=== PATIENT | male | born 1980 | race Hispanic/Latino ===

== ENCOUNTER 2022-01-14 20:27 | Emergency (ER) | payer OTHER ==
[~2022-01-14] VITALS: Ht 177.8 cm; Wt 123.8 kg
[2022-01-14 22:01] LABS: HEMATOCRIT 31.2 % (42-54); MEAN CORPUSCULAR HEMOGLOBIN 34.5 pg (27.0-33.0); MEAN CORPUSCULAR HGB CONC 34.6 g/dL (32.0-36.0); MEAN CORPUSCULAR VOLUME 99.7 fL (79-99); PLATELET COUNT (AUTO) 23 K/uL (130-400); RED BLOOD CELL COUNT(AUTO) 3.13 MIL/uL (4.50-6.20); RED CELL DISTRIBUTION WIDTH 16.1 % (11.0-15.5)
[2022-01-14 22:18] LABS: CREATININE 0.9 mg/dL (0.5-1.5); POTASSIUM 4.4 mmol/L (3.5-5.1)
[2022-01-14 22:22] LABS: ALBUMIN 3.1 g/dL (3.5-5.0)
[2022-01-14 22:34] LABS: APPEARANCE,URINE Cloudy (CLEAR); BILIRUBIN,URINE Moderate (NEGATIVE); COLOR,URINE Dark Yellow (YELLOW); GLUCOSE, URINE (UA) Negative (NEGATIVE); KETONES,URINE Trace mg/dL (NEGATIVE); LEUKOCYTE ESTERASE ,URINE Small (NEGATIVE); NITRATE,URINE Positive (NEGATIVE); OCCULT BLOOD,URINE Negative (NEGATIVE); PROTEIN,URINE Negative (NEGATIVE); UROBILINOGEN,URINE >=8.0 mg/dL (0.2-1.0)
[2022-01-14 22:57] LABS: AMORPHOUS SEDIMENT,UR Moderate /LPF (None Seen); BACTERIA,URINE Few /HPF (None Seen); RBC,URINE None Seen /HPF (0-1); SQUAMOUS EPITHELIAL CELL,UR None Seen /HPF (0-2); WBC,URINE 0-1 /HPF (0-1)
[2022-01-14] MEDS ORDERED: CEFTRIAXONE 1G VIAL IM ONE (23:00)
[2022-01-14] MEDS ORDERED: CEPH500B PO (23:01)
[2022-01-14] MEDS ORDERED: LIDOCAINE HCL-MPF 1% 2ML VIAL ONE (23:02)
[2022-01-14 23:06] VITALS: BP 149/85
== END 2022-01-14 23:07 | disposition home or self-care (01) ==
LOC: EDH 20:27
DX: D69.6 Thrombocytopenia, unspecified (principal); N39.0 Urinary tract infection, site not specified; I10 Essential (primary) hypertension; E66.9 Obesity, unspecified; Z68.39 Body mass index [BMI] 39.0-39.9, adult
CPT/HCPCS: 36415; 80053; 81001; 82550; 85027; 87088; J0696; J3490

== ENCOUNTER 2022-02-21 08:39 | Emergency (ER) | payer OTHER ==
[~2022-02-21] VITALS: Ht 175.3 cm; Wt 124.7 kg
[~2022-02-21 08:39] MED LIST: CEPH500B PO
[2022-02-21 09:05] LABS: BASOPHILS % (AUTO) 0.7 % (0.0-5.0); EOSINOPHILS % (AUTO) 0.5 % (0.0-8.0); LYMPHOCYTES % (AUTO) 15.4 % (21.0-51.0); MEAN CORPUSCULAR HEMOGLOBIN 32.9 pg (27.0-33.0); MEAN CORPUSCULAR HGB CONC 34.1 g/dL (32.0-36.0); MEAN CORPUSCULAR VOLUME 96.7 fL (79-99); NEUTROPHILS % (AUTO) 75.1 % (40.0-77.0); PLATELET COUNT (AUTO) 49 K/uL (130-400); RED BLOOD CELL COUNT(AUTO) 3.31 MIL/uL (4.50-6.20); RED CELL DISTRIBUTION WIDTH 14.2 % (11.0-15.5); WHITE BLOOD COUNT (AUTO) 7.3 K/uL (4.8-10.8)
[2022-02-21 09:16] LABS: POTASSIUM 3.6 mmol/L (3.5-5.1)
[2022-02-21 09:27] LABS: ALBUMIN 2.7 g/dL (3.5-5.0); BILIRUBIN,TOTAL 3.1 mg/dL (0.2-1.0); TOTAL PROTEIN, SERUM 6.2 g/dL (6.0-8.3)
[2022-02-21] MEDS ORDERED: 0.9%NACL 1000ML 1,000 ML IV ONE (09:30)
[2022-02-21] MEDS ORDERED: ACETAMINOPHEN 500 MG TABLET PO ONE (11:00)
[2022-02-21] MEDS ORDERED: FLUTICASONE PROPIONATE 50MCG/SPRAY 16 GM BOTTLE EN SCH (11:00)
[2022-02-21 11:09] LABS: APPEARANCE,URINE Clear (CLEAR); BILIRUBIN,URINE Negative (NEGATIVE); COLOR,URINE Yellow (YELLOW); GLUCOSE, URINE (UA) Negative (NEGATIVE); KETONES,URINE Negative (NEGATIVE); LEUKOCYTE ESTERASE ,URINE Trace (NEGATIVE); NITRATE,URINE Negative (NEGATIVE); OCCULT BLOOD,URINE Negative (NEGATIVE); PROTEIN,URINE POS 1+ mg/dL (NEGATIVE)
[2022-02-21 11:18] LABS: RBC,URINE 0-1 /HPF (0-1); WBC,URINE 0-1 /HPF (0-1)
[2022-02-21 11:19] LABS: BACTERIA,URINE Few /HPF (None Seen)
[2022-02-21] MEDS ORDERED: FLUT16H NASAL (12:40)
[2022-02-21] MEDS ORDERED: METH4TAB3 PO (12:40)
[2022-02-21] MEDS ORDERED: AMOX1TAB16 PO (12:40)
[2022-02-21 12:49] VITALS: BP 138/69
[2022-02-21] MEDS ORDERED: AMOX/CLAV 875/125MG TAB PO ONE (13:00)
== END 2022-02-21 13:19 | disposition home or self-care (01) ==
LOC: EDH 08:39
DX: J32.9 Chronic sinusitis, unspecified (principal); I10 Essential (primary) hypertension; E66.9 Obesity, unspecified; Z79.52 Long term (current) use of systemic steroids; Z68.41 Body mass index [BMI] 40.0-44.9, adult
CPT/HCPCS: 36415; 70450; 80053; 81001; 84484; 85025; 86850; 86900; 86901; 93005; 96360; 99285; J7030

== ENCOUNTER 2023-10-24 16:29 | Inpatient (IN) | payer OTHER ==
[~2023-10-24] VITALS: Ht 177.8 cm; Wt 141.5 kg
[~2023-10-24 16:29] MED LIST changes: +AMOX-426 PO; -CEPH500B PO; +LACT PO; +PRED20TA3 PO; +RIFA550T PO; +SODI650T PO
[2023-10-24 17:27] LABS: BASOPHILS # (AUTO) 0.02 K/uL (0.00-0.20); BASOPHILS % (AUTO) 0.1 % (0.0-5.0); EOSINOPHILS # (AUTO) 0.09 K/uL (0.00-0.70); EOSINOPHILS % (AUTO) 0.6 % (0.0-8.0); IMMATURE GRANULOCYTE ABSOLUTE 0.26 K/uL (0-1); LYMPHOCYTES # (AUTO) 0.9 K/uL (1.0-4.8); LYMPHOCYTES % (AUTO) 6.6 % (21.0-51.0); MEAN CORPUSCULAR HEMOGLOBIN 35.1 pg (27.0-33.0); MEAN CORPUSCULAR HGB CONC 35.7 g/dL (32.0-36.0); MEAN CORPUSCULAR VOLUME 98.2 fL (79-99); MONOCYTES # (AUTO) 1.1 K/uL (0.1-1.0); MONOCYTES % (AUTO) 7.5 % (3.0-13.0); NEUTROPHILS # (AUTO) 11.8 K/uL (1.8-7.7); NEUTROPHILS % (AUTO) 83.4 % (40.0-77.0); PLATELET COUNT (AUTO) 35 K/uL (130-400); RED BLOOD CELL COUNT(AUTO) 2.85 MIL/uL (4.50-6.20); RED CELL DISTRIBUTION WIDTH 17.7 % (11.0-15.5); WHITE BLOOD COUNT (AUTO) 14.2 K/uL (4.8-10.8)
[2023-10-24 17:58] LABS: INR 2.38 (0.85-1.15); PROTHROMBIN TIME 26.1 SEC (9.6-11.6)
[2023-10-24 17:59] LABS: PARTIAL THROMBOPLASTIN TIME 58.1 SEC (26.3-35.5)
[2023-10-24 18:03] LABS: CREATININE 1.4 mg/dL (0.5-1.5); TOTAL PROTEIN, SERUM 5.3 g/dL (6.0-8.3)
[2023-10-24 18:07] LABS: PLATELET MORPHOLOGY COMMENT MARKED DECREASE
[2023-10-24 18:08] LABS: B-TYPE NATRIURETIC PEPTIDE 23 pg/mL (0-100)
[2023-10-24 18:09] LABS: BILIRUBIN,TOTAL 28.4 mg/dL (0.2-1.0)
[2023-10-24] MEDS ORDERED: IOHEXOL-350 75 ML VIAL IV ONE (19:14)
[2023-10-24] MEDS ORDERED: POTASSIUM CHLORIDE 10% ELIXIR 20 MEQ/15 ML UDCUP PO ONE (22:00)
[2023-10-25] MEDS ORDERED: MAGNESIUM 2GM PREMIX 50ML 50 ML IV PRN (02:30)
[2023-10-25] MEDS ORDERED: POTASSIUM CHLORIDE 20MEQ/100ML 100 ML IV PRN ×2 (02:30→10:30)
[2023-10-25] MEDS ORDERED: ONDANSETRON 4MG INJ IV PRN (02:30)
[2023-10-25] MEDS ORDERED: LEVOFLOXACIN 500 MG/D5W 100 ML 100 ML IV SCH (02:30)
[2023-10-25 05:48] VITALS: BP 138/75; PULSE 95; RESP 20
[2023-10-25 06:04] LABS: APPEARANCE,URINE CLEAR (CLEAR); BILIRUBIN,URINE NEGATIVE (NEGATIVE); COLOR,URINE YELLOW (YELLOW); GLUCOSE, URINE (UA) NEGATIVE (NEGATIVE); KETONES,URINE NEGATIVE (NEGATIVE); LEUKOCYTE ESTERASE ,URINE NEGATIVE Leu/uL (NEGATIVE); NITRATE,URINE NEGATIVE (NEGATIVE); OCCULT BLOOD,URINE NEGATIVE (NEGATIVE); PROTEIN,URINE 30 mg/dL (NEGATIVE); UROBILINOGEN,URINE 0.2 mg/dL (0.2-1.0)
[2023-10-25 06:05] LABS: ADD UA MICROSCOPIC YES
[2023-10-25 06:06] LABS: MUCUS,URINE MOD LPF (None Seen); SQUAMOUS EPITHELIAL CELL,UR RARE /HPF (0-2); WBC,URINE 0-1 /HPF (0-1)
[2023-10-25 06:20] LABS: BASOPHILS # (AUTO) 0.02 K/uL (0.00-0.20); BASOPHILS % (AUTO) 0.1 % (0.0-5.0); EOSINOPHILS # (AUTO) 0.27 K/uL (0.00-0.70); EOSINOPHILS % (AUTO) 1.6 % (0.0-8.0); HEMATOCRIT 25.7 % (42-54); IMMATURE GRANULOCYTE ABSOLUTE 0.29 K/uL (0-1); LYMPHOCYTES # (AUTO) 1.8 K/uL (1.0-4.8); LYMPHOCYTES % (AUTO) 10.3 % (21.0-51.0); MEAN CORPUSCULAR HEMOGLOBIN 35.2 pg (27.0-33.0); MEAN CORPUSCULAR VOLUME 95.2 fL (79-99); MONOCYTES # (AUTO) 1.6 K/uL (0.1-1.0); MONOCYTES % (AUTO) 9.4 % (3.0-13.0); NEUTROPHILS # (AUTO) 13.3 K/uL (1.8-7.7); NEUTROPHILS % (AUTO) 76.9 % (40.0-77.0); PLATELET COUNT (AUTO) 41 K/uL (130-400); WHITE BLOOD COUNT (AUTO) 17.3 K/uL (4.8-10.8)
[2023-10-25 06:50] LABS: ALBUMIN 1.9 g/dL (3.5-5.0); CREATININE 1.3 mg/dL (0.5-1.5)
[2023-10-25 07:00] VITALS: O2SAT 98
[2023-10-25 07:00] LABS: BILIRUBIN,DIRECT 18.5 mg/dL (0.0-0.3); BILIRUBIN,TOTAL 27.2 mg/dL (0.2-1.0)
[2023-10-25 08:00] VITALS: BP 129/68; PULSE 86; RESP 16
[2023-10-25 08:30] VITALS: O2SAT 99
[2023-10-25] MEDS ORDERED: FAMOTIDINE 20MG TAB PO SCH (09:00)
[2023-10-25] MEDS ORDERED: POTASSIUM CHLORIDE 10% ELIXIR 20 MEQ/15 ML UDCUP PO PRN (10:30)
[2023-10-25] MEDS ORDERED: LACTULOSE 20 GM/30 ML UDCUP PO ONE (11:00)
[2023-10-25] MEDS ORDERED: RIFAXIMIN 550 MG TABLET PO SCH ×2 (11:00→21:00)
[2023-10-25] MEDS: KCL 20 MEQ ERTAB PO PRN ×2 (11:26→11:27)
[2023-10-25 12:00] VITALS: BP 135/64; PULSE 98; RESP 18
[2023-10-25] MEDS ORDERED: SODIUM BICARBONATE 650 MG TAB PO SCH (14:00)
[2023-10-25] MEDS ORDERED: LACTULOSE 20 GM/30 ML UDCUP PO SCH (21:00)
== END 2023-10-25 12:15 | disposition home or self-care (01) | DRG 433 ==
LOC: EDH 16:29 → EDHIP 10-25 02:19 → 4CH 10-25 05:12
PROVIDERS: ADMIT Hospitalist; ATTEND Hospitalist
DX: K74.69 Other cirrhosis of liver (principal); R18.8 Other ascites; Z68.41 Body mass index [BMI] 40.0-44.9, adult; E66.01 Morbid (severe) obesity due to excess calories; E87.6 Hypokalemia; I10 Essential (primary) hypertension; I45.9 Conduction disorder, unspecified; K80.20 Calculus of gallbladder without cholecystitis without obstruction; K21.9 Gastro-esophageal reflux disease without esophagitis; F10.20 Alcohol dependence, uncomplicated
CPT/HCPCS: 36415; 71045; 74177; 80048; 80053; 80076; 81001; 83735; 83880; 84484; 85025; 85610; 85730; 87040; 93005; G0378; J1956; J3480; Q9967